=== PATIENT | male | born 1960 | race Caucasian/White ===

== ENCOUNTER 2018-06-20 13:07 | Emergency (ER) | payer MEDICAID ==
[2018-06-20 13:16] VITALS: BP 110/67
--- NOTE | 2018-06-20 13:20 | EDPHY ---
H & P Stated Complaint: Woke yest c pain and "cracking" L forearm, no noticeable deform. Time Seen by Provider: 06/20/18 13:19 - Personal History Current Tetanus/Diphtheria Vaccine: Yes - Medical/Surgical History Hx Asthma: No Hx Chronic Respiratory Disease: No Hx Diabetes: No Hx Cardiac Disease: No Hx Renal Disease: No Hx Cirrhosis: No Hx Alcoholism: No Hx HIV/AIDS: No Hx Splenectomy or Spleen Trauma: No Other PMH: none - Social History Smoking Status: Never smoked Constitutional: Initial Vital Signs Temperature (C) 36.4 C 06/20/18 13:12 Heart Rate 82 06/20/18 13:12 Respiratory Rate 18 06/20/18 13:12 Blood Pressure 110/67 06/20/18 13:12 O2 Sat (%) 92 06/20/18 13:12 O2 Delivery Mode Room Air Allergies/Adverse Reactions: No Known Allergies Allergy (Unverified 06/20/18 13:12) Medical Decision Making - Diagnostics Imaging: I viewed and interpreted images myself ED Course/Re-evaluation: CHIEF COMPLAINT: Left arm "clicking" HISTORY OF PRESENT ILLNESS: The patient is a 57 y/o male complaining of a "clicking" from his left arm after sleeping on it oddly. 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 Last night he took Seroquel and slept on his arm "funny". Since then he has been hearing a "clicking" sign when he rotates his arm, which is concerning him. He denies having any neuro deficits from his arm. He did break this arm 30 years ago. No fever, headache, body aches, lightheadedness, chest pain, heart palpitations, shortness of breath, cough, abdominal pain, urinary or bowel complaints, numbness, paresthesias. REVIEW OF SYSTEMS: A comprehensive 10 system review of systems is otherwise negative aside from elements mentioned in the history of present illness and medical decision making. PHYSICAL EXAM: HR, BP, O2 Sat, RR. Temp noted General Appearance: Alert, well hydrated, appropriate, and non-toxic appearing. Head: Atraumatic without scalp tenderness or obvious injury Eyes: Pupils equal, round, reactive to light and accommodation, EOMI, no trauma , no injection. Ears: Clear bilaterally, no perforation, normal landmarks Nose: Atraumatic, no rhinorrhea, clear. Throat: There is no erythema or exudates, no lesions, normal tonsils, mucus membranes moist. Neck: Supple, 2+ carotid upstroke, nontender, no lymphadenopathy. Respiratory: No retractions, no distress, no wheezes, and no accessory muscle use. Lungs are clear to auscultation bilaterally. Cardiovascular: Regular rate and rhythm, no murmurs, rubs, or gallops. Bilateral carotid, radial, dorsalis pedis, and posterior tibial pulses intact. Good capillary refill all extremities. Gastrointestinal: Abdomen is soft, nontender, non-distended, no masses, no rebound, no guarding, no peritoneal signs. Musculoskeletal: "Clicking" from left forearm when externally or internally rotates arm. Normal active ROM of all extremities, atraumatic. Neurological: Alert, appropriate, and interactive. The patient has normal DTRs and non-focal cranial nerves, motor, sensory, and cerebellar exam. Skin: No rashes, good turgor, no nodules on palpation. Past medical history: Denies Past surgical history: Denies Family history: Denies Social history: Lives in [place], , employed as a brady DIAGNOSTICS/PROCEDURES/CRITICAL CARE TIME: Left arm x-ray: No acute findings. DIFFERENTIAL DIAGNOSIS: The differential diagnosis for the patient's arm injury included but was not limited to fracture, ligamentous injury, contusion, muscular strain. MEDICAL DECISION MAKING: The patient is a 57 y/o male complaining of a "clicking" from his left arm after sleeping on it oddly last night. The patient has a normal physical exam besides a "clicking" noise when her externally or internally rotates his arm. Left arm x-ray ordered. 1349: Reassessed patient and discussed normal imaging findings. I have advised him to follow up with an orthopedic surgeon for his symptoms. Return precautions provided; patient is comfortable with this plan. Departure - Departure Disposition: Home, Routine, Self-Care Clinical Impression: Left arm pain Condition: Good Instructions: Arm Pain (ED) Additional Instructions: 1. Rest, ice, elevation. 2. Follow up with an orthopedic surgeon within one week. 3. Return to the emergency department for worsening pain, swelling, numbness, weakness or other concerns. 4. You will likely need an MRI to further evaluate your injury. Referrals: Raghu Wilkins MD [Medical Doctor] - As per Instructions Report Scribed for: David Anton Report Scribed by: Elke Reyes Date of Report: 06/20/18 Time of Report: 13:21
== END 2018-06-20 13:53 | disposition home or self-care (01) ==
DX: M79.602 Pain in left arm (principal)